=== PATIENT | female | born 1935 | race Caucasian/White ===

== ENCOUNTER 2021-02-23 01:29 | Day surgery (SDC) | payer MEDICARE, SELFPAY ==
[2021-02-12 10:10] VITALS: BMI 23.7
[2021-02-23 09:50] VITALS: BP 178/71; PULSE 65; RESP 16; TEMP 35.9; O2SAT 98; BMI 23.0
--- NOTE | 2021-02-23 10:04 | PM.HPGS ---
History of Present Illness History of Present Illness Consent: Risks, benefits, and alternatives have been discussed and questions answered. Patient agrees to proceed with procedure. Chief complaint: occult GI bleed, Rectal bleeding Narrative: Flavia Clifford is a 85 year old female with Hemoccult-positive stool and anemia. She had endoscopy to investigate anemia about 3 or 4 years ago and does not believe that anything significant was found Review of Systems Review of Systems: All systems reviewed & are unremarkable except as noted in HPI and below PMFSH Social History Social History Living arrangements: with family Spiritual care concerns: No Meds Home Medications and Allergies Home Medications Medication Instructions Recorded Confirmed Type cholecalciferol (vitamin D3) 10 mcg PO DAILY 02/12/21 02/12/21 History [Vitamin D3] cyanocobalamin (vitamin B-12) 1,000 mcg PO DAILY 02/12/21 02/12/21 History levothyroxine 75 mcg PO DAILY 02/12/21 02/12/21 History lutein 6 mg PO DAILY 02/12/21 02/12/21 History spironolactone 25 mg PO DAILY 02/12/21 02/12/21 History Allergies Allergy/AdvReac Type Severity Reaction Status Date / Time Sulfa (Sulfonamide Allergy Nausea and Verified 02/23/21 10:04 Antibiotics) Vomiting [place]-Tyq-Kxi Reductase AdvReac Other Verified 02/23/21 10:04 Inhibitor Exam Resp: Auscultation: clear to auscultation bilaterally Cardio: Rate: regular rate Rhythm: regular rhythm GI: GI Palp: Yes Soft to palpation and No Tenderness to palpation present (GI) Assessment and Plan Assessment and plan (1) Blood in stool: Code(s): K92.1 - Melena Status: Acute Assessment and Plan: Colonoscopy with possible biopsy or polypectomy or cautery or injection of substances.
[2021-02-23] MEDS: LACTATED RINGERS 1,000 ML 150 ML IV CONT (10:22)
--- NOTE | 2021-02-23 10:24 | WPDANESEPPF ---
Anes - Initial Pre Proc Eval Procedure: Operation Date: 02/23/21 10:30 Proposed Procedures p Colonoscopy - Art Madison MD Date/Time: 02/23/21 10:24 Surgeon: Art Madison MD Pre Op Diagnosis: occult GI bleed, Rectal bleeding Patient Data Age: 85 Gender: F Height: 1.55 m Weight: 55.2 kg Last Vital Signs Temp 35.9 C L 02/23/21 09:50 Pulse 65 02/23/21 09:50 Resp 16 02/23/21 09:50 BP 178/71 H 02/23/21 09:50 Pulse Ox 98 02/23/21 09:50 Allergies Allergy/AdvReac Type Severity Reaction Status Date / Time Sulfa (Sulfonamide Allergy Nausea and Verified 02/23/21 10:04 Antibiotics) Vomiting Orzqvxn-Gvf-Ugr Reductase AdvReac Other Verified 02/23/21 10:04 Inhibitor Home Medications Medication Instructions Recorded Confirmed Type cholecalciferol (vitamin D3) 10 mcg PO DAILY 02/12/21 02/23/21 History [Vitamin D3] cyanocobalamin (vitamin B-12) 1,000 mcg PO DAILY 02/12/21 02/23/21 History levothyroxine 75 mcg PO DAILY 02/12/21 02/23/21 History lutein 6 mg PO DAILY 02/12/21 02/23/21 History spironolactone 25 mg PO DAILY 02/12/21 02/23/21 History Patient hx anesthesia problems: none Family hx anesthesia problems: none [facility] Past Medical History Medical History (Updated 02/23/21 @ 10:27 by Octaviano Castro MD) Breast cancer HTN (hypertension) Social History Social History Living arrangements: with family Spiritual care concerns: No Anes - Eval Final PreProcedure Day of Procedure 02/23/21 10:24 Patient weight: normal Heart: regular rate and rhythm Lungs: clear to auscultation Airway: Mallampati scale class II Neurological: alert and oriented Last oral intake: >/= 8 hours ASA classification: III Emergent: no Anesthetic plan: proceed Anesthesia type and monitoring: general GIVS and standard monitoring Informed Consent: The patient's anesthetic plan and its attendant risks and benefits were discussed with the patient/family/POA. Questions were solicited and answers provided to the satisfaction of the patient/family/POA.
[2021-02-23] MEDS: SIMETHICONE ORAL SUSPENSION 20 MG/0.3 ML 30 ML BOTTLE 0.6 ML IRRIGATION (10:55)
[2021-02-23 11:05] VITALS: BP 144/64; PULSE 67; RESP 18; O2SAT 98
[2021-02-23 11:15] VITALS: BP 147/73; PULSE 61; RESP 24; O2SAT 98
[2021-02-23 11:20] VITALS: BP 134/68; PULSE 60; RESP 20; O2SAT 98
== END 2021-02-23 11:30 | disposition home or self-care (01) ==
PROVIDERS: PCP Internal Medicine Geriatric Medicine; Visit Provider Internal Medicine Gastroenterology
PROC: 0DJD8ZZ Inspection of Lower Intestinal Tract, Via Natural or Artificial Opening Endoscopic (ICD-10-PCS; CPT 45378; principal; 2021-02-23 10:30)
DX: D64.9 Anemia, unspecified (principal); D12.3 Benign neoplasm of transverse colon; K92.1 Melena; K64.8 Other hemorrhoids; K57.30 Diverticulosis of large intestine without perforation or abscess without bleeding; E03.9 Hypothyroidism, unspecified; I10 Essential (primary) hypertension
CPT/HCPCS: 45385; 88305; J2704; J7120

== ENCOUNTER 2023-01-22 11:35 | Inpatient (IN) | payer MEDICARE, SELFPAY ==
[2023-01-22] VITALS (65 sets, daily range): BP systolic 91–130; BP diastolic 45–69; PULSE 71–85; RESP 14–23; TEMP 36.6; O2SAT 79–100; BMI 21.6
--- NOTE | ~2023-01-22 | XR_ITS ---
EXAMINATION: XR chest 1V INDICATION: Chest pain and shortness of breath TECHNIQUE: AP view of the chest is obtained. COMPARISON: None available FINDINGS: There is mild atelectasis of the lung bases. No pleural effusion or pneumothorax. The cardi omediastinal silhouette is normal. There appear to be changes of left mastectomy. IMPRESSION: 1. Mild atelectasis of the lung bases. Reviewed, dictated and finalized at location A.
--- NOTE | ~2023-01-22 | CT_ITS ---
EXAMINATION: CT abdomen pelvis wo con DATE: 01/22/2023 14:10 INDICATION: Left abdominal pain, nausea and tenderness TECHNIQUE: Computed tomography (CT) of the abdomen and pelvis was performed without intravenous contr ast. Automated exposure control and iterative reconstruction technique were employed. The dose-length product was 298.72 mGy-cm. COMPARISON: None FINDINGS: Mild basilar and dependent atelectasis in the bilateral lower lungs. Heart size is normal. Atheroscle rotic coronary artery calcific location. No pericardial or pleural effusion. Bilateral renal cysts th e largest on the right measuring up to 4 cm. Liver, gallbladder, spleen, pancreas and bilateral adren al glands are normal. A few splenic calcific lesions consistent with old granulomatous disease. Short segment of nonobstructed distal ileum extends into a small direct right inguinal hernia. No bowel ob struction. There is moderate colonic diverticulosis with a sigmoid predominance. There is no adjacent inflammatory change to suggest diverticulitis. Normal appendix. Bladder is normal. The uterus is not identified and has likely been surgically resected. No free intraperitoneal gas or fluid. No patholo gically enlarged abdominal or pelvic lymphadenopathy. Chronic appearing T11 burst fracture with 40% a nterior vertebral body height loss and 3 mm retropulsion resulting in mild central canal stenosis at this level. Severe lower lumbar spondylosis. IMPRESSION: 1. Short loop of nonobstructed distal ileum extends into a right inguinal hernia. 2. Diverticulosis. Reviewed, dictated and finalized at location A. IMPRESSION: 1. Short loop of nonobstructed distal ileum extends into a right inguinal herni a. 2. Diverticulosis.
--- NOTE | ~2023-01-22 | XR_ITS ---
EXAMINATION: XR hip RT 2V w AP pelvis INDICATION: Right hip pain TECHNIQUE: AP view the pelvis and two views of the right hip are obtained. COMPARISON: None available FINDINGS: Bone alignment is normal. There is no fracture. There is mild osteoarthritis of the hips. T here is severe lumbar spondylosis. IMPRESSION: 1. No acute osseous abnormality. Reviewed, dictated and finalized at location A.
--- NOTE | ~2023-01-22 | CT_ITS ---
EXAMINATION: CT brain wo con INDICATION: Headache COMPARISON: None TECHNIQUE: Standard unenhanced head CT. The dose-length product (DLP) was 605.33 mGy-cm. The mA was a djusted according to patient size. Iterative reconstruction technique was employed. FINDINGS: There is no acute intraparenchymal hemorrhage. No evidence of mass lesion. No evidence of a cute infarction. There is mild periventricular and subcortical hypodensity probably related to small vessel ischemic disease. There is mild prominence of the sulci and ventricles related to cerebral atr ophy. Intracranial calcified cerebral atherosclerosis is noted. There are no extra-axial collections. There is no mass effect or midline shift. Changes in the right globe are likely from ocular lens luz maria evelio. There is a polyp or mucous retention cyst of the left maxillary sinus. IMPRESSION: 1. No acute intracranial abnormality. 2. Age related findings. Reviewed, dictated and finalized at location A.
--- NOTE | ~2023-01-22 | XR_ITS ---
EXAMINATION: XR esophogram water soluble DATE: 01/24/2023 12:59 INDICATION: Dysphagia. TECHNIQUE: The patient drank water-soluble contrast. Fluoroscopy of the hypopharynx and esophagus was performed. Fluoroscopy exposure time was 0.8 minutes. The total number of images was 521. The dose-a marianne product was 0.883 Gy-cm^2. COMPARISON: None. FINDINGS: There is no mass or stricture of the esophagus. There is decreased primary and secondary es ophageal peristalsis. No significant abnormal tertiary waves. There is no hiatal hernia. IMPRESSION: 1. Moderate esophageal dysmotility. Reviewed, dictated and finalized at location A.
--- NOTE | ~2023-01-22 | CT_ITS ---
EXAMINATION: CT cervical spine wo con DATE: 01/22/2023 14:10 INDICATION: Neck pain TECHNIQUE: Computed tomography (CT) of the cervical spine was performed without intravenous contrast. The dose-length product (DLP) was 139.64 mGy-cm. Automated exposure control and iterative reconstruc tion technique were employed. COMPARISON: None FINDINGS: There is moderate loss of intervertebral disc space height at C6-7. The vertebral body heig hts are maintained. The odontoid process is intact. There is multilevel moderate facet and uncoverteb ral joint osteoarthritis. IMPRESSION: 1. Mild to moderate cervical spondylosis without acute findings. Reviewed, dictated and finalized at location A.
--- NOTE | 2023-01-22 12:34 | ECG_ITS ---
Measurements Intervals [place] Rate: 78 P: 157 NC: 145 QRS: -20 QRSD: 90 T: 146 QT: 375 QTc: 429 Interpretive Statements SINUS RHYTHM POSSIBLE LEFT ATRIAL ENLARGEMENT LOW QRS VOLTAGE IN LIMB LEADS INFERIOR INFARCT, AGE INDETERMINATE BORDERLINE ST-T WAVE ABNORMALITY- HIGH LATERAL LEADS BASELINE ARTIFACT- I, II, III, AVR, AVL, AVF, V1 ABNORMAL ECG NO PREVIOUS ECG AVAILABLE FOR COMPARISON Electronically Signed On 01-22-2023 15:52:32 CDT by Livan Schwartz D.O.
--- NOTE | 2023-01-22 12:36 | ED.FALL ---
HPI - Fall General Chief Complaint: Fall Stated Complaint: FALL Time Seen by Provider: 01/22/23 12:02 History of Present Illness HPI Narrative: Patient is an 87-year-old female with a history of hypothyroidism, hypertension presenting after a fall. Patient's children are at bedside and assists with the history. Patient lives with her daughter. They state that the patient has had decreased appetite for the last week. Patient states that she will feel hungry but she is only able to eat a couple of bites. States that she has been nauseated as well. States that she has had decreased urinary output. She also complains of the left lower abdominal pain. Patient states that she got up for some water in the middle of the night and as she tried to stand out of her bed she slipped down to the floor. She did not strike her head or lose consciousness. Patient states that she was unable to get up due to generalized weakness. She was on the floor for about an hour before she was able to get her daughter's attention. Patient complains of some right hip pain. States that she did feel short of breath earlier. She denies numbness or weakness, fevers, chest pain, diarrhea, leg swelling, rashes. Related Data Home Medications Medication Instructions Recorded Confirmed cyanocobalamin (vitamin B-12) 1,000 mcg PO DAILY 02/12/21 01/22/23 1,000 mcg tablet levothyroxine 75 mcg tablet 75 mcg PO DAILY 02/12/21 01/22/23 lutein 6 mg tablet 6 mg PO DAILY 02/12/21 01/22/23 spironolactone 25 mg tablet 25 mg PO DAILY 02/12/21 01/22/23 cholecalciferol (vitamin D3) 25 25 mcg PO DAILY 01/22/23 01/22/23 mcg (1,000 unit) capsule (Vitamin D3) felodipine 2.5 mg tablet,extended 2.5 mg PO DAILY 01/22/23 01/22/23 release 24 hr naproxen sodium 220 mg tablet 220 mg PO Q8H PRN Pain (Scale 01/22/23 01/22/23 (Aleve) Score 1-3) ondansetron HCl 4 mg tablet 4 mg PO Q4-6H PRN Nausea And 01/22/23 01/22/23 Vomiting Allergies Allergy/AdvReac Type Severity Reaction Status Date / Time Srsuhgw-IRA-KwI Reductase AdvReac Other Verified 01/22/23 11:39 Inhibitor [Jwycugt-Thr-Njq Reductase Inhibitor] Sulfa (Sulfonamide AdvReac Nausea and Verified 01/22/23 12:38 Antibiotics) Vomiting Review of Systems Review of Systems: All systems reviewed & are unremarkable except as noted in HPI and below [facility] Past Medical History Medical History (Updated 01/24/23 @ 18:27 by Tammy Saldaña MD) Cancer of left breast Diverticulosis Hypertension Osteoarthritis Right inguinal hernia Surgical History Surgical History (Updated 01/22/23 @ 22:18 by Patsy Anderson PA-C) History of cataract extraction History of left mastectomy History of partial thyroidectomy Family History Family History Son Autoimmune disease Sarcoidosis Father Acute myocardial infarction, Onset Age: 51 Mother , Onset Age: 47 bowel perforation Son Heart valve replaced Son , Onset Age: 52 autoimmune hemolytic anemia Social History Social History (Updated 01/22/23 @ 22:20 by Patsy Anderson PA-C) Social History: Surrogate medical decision maker: Lei Clifford (children). Code status: Full code. Smoking status: Never smoker Alcohol intake: never Substance use: never Lack of Transportation: No Lack of Food: Never True Current Housing: I Have Housing Concerned About Future Housing: No Difficulty Paying Gas/Electric Bills: No Difficulty Paying for Meds: No Currently Unemployed: No Education: High School Diploma/GED Difficulty w/ Childcare or Family Care: No Living arrangements: with family Additional living arrangements comments: Lives with daughter in [place]. Spiritual care concerns: No Exam Narrative: GENERAL: Elderly female lying in bed in no acute distress, pleasant and cooperative HEAD: N
[2023-01-22] MEDS: ACETAMINOPHEN 500 MG TABLET 1000 MG PO (12:53)
[2023-01-22] MEDS: SODIUM CHLORIDE 0.9% IV 1,000 ML 999 ML IV CONT ×2 (12:53→14:05)
[2023-01-22 12:55] LABS: Hematocrit 33.6 % (37.0-47.0); Hemoglobin 11.1 g/dL (12.0-15.0); Mean Corpuscular Hemoglobin 31.4 pg (26-34); Mean Corpuscular Volume 94.9 fl (80-100); Mean Platelet Volume 9.1 fl (7.4-10.4); Platelet Count Result 240 k/mm3 (150-375); Red Blood Count 3.54 M/mm3 (4.2-5.4); Red Cell Distribution Width 14.3 % (11.5-14.5); White Blood Count 41.8 K/mm3 (4.5-10.0)
[2023-01-22 13:05] LABS: INR 1.3; Prothrombin Time 16.5 Seconds (11.1-14.7)
[2023-01-22 13:06] LABS: Partial Thromboplastin Time 33.3 SECONDS (22.3-36.8)
[2023-01-22 13:07] LABS: Alanine Aminotransferase 21 U/L (6-35); Alkaline Phosphatase 102 U/L (38-126); Anion Gap 5 mmol/L (8-16); Aspartate Amino Transferase 45 U/L (14-36); Bilirubin,Total 0.6 mg/dL (0.2-1.3); Blood Urea Nitrogen 34 mg/dL (7-17); Calcium 7.9 mg/dL (8.4-10.2); Carbon Dioxide 26 mmol/L (22-30); Chloride 97 mmol/L (98-107); Creatine Kinase 962 U/L (30-135); Estimated CRCL calculation 13 ml/min; Estimated Glomerular Filt Rate 24; Glucose 97 mg/dL (65-110); Lipase 14 U/L (23-300); Magnesium 1.6 mg/dL (1.6-2.3); Potassium 4.9 mmol/L (3.4-5.0); Sodium 128 mmol/L (137-145)
[2023-01-22 13:15] LABS: NT Pro B Type Natriuretic Pept 8150 pg/mL (19.9-100)
[2023-01-22 13:23] LABS: Band Neutrophils Percent 17 % (0-6); Lymphocytes Absolute Manual 0.41 K/mm3 (1.1-4.5); Metamyelocytes Percent 6 %; Monocytes Absolute Manual 1.67 K/mm3 (0.1-0.90); Monocytes Percent Manual 4 % (3-9); Neutrophils Percent Manual 72 % (46-73); Total Cells Counted 100
[2023-01-22 13:25] LABS: Dohle Bodies Present (NORMAL); Platelet Estimate Adequate (Adequate); Schistocytes None Seen (NORMAL)
[2023-01-22 13:30] LABS: Influenza A QL RT-PCR Negative (Negative); Influenza B QL RT-PCR Negative (Negative); SARS-CoV-2 RNA PCR Negative (Negative)
[2023-01-22] MEDS: PIPERACILLN/TAZ 3.375GM/NS50ML 3.375 GM/50 ML BAG IVPB (14:05)
[2023-01-22 14:33] LABS: Appearance Urine Turbid (Clear); Bacteria Urine 4+ /hpf; Bilirubin Urine Negative (Negative); Blood Urine 3+ (Negative); Color Urine Dark Yellow (Yellow); Glucose Urine UA Negative (Negative); Hyaline Casts Urine Present /lpf; Ketones Urine Trace mg/dL (Negative); Leukocyte Esterase Ur 3+ LEU/UL (Negative); Nitrate Urine Negative (Negative); Non Pathogenic Casts >20; Protein Urine 1+ mg/dL (Negative); Specific Grav Ur 1.014 (1.001-1.035); Squamous Epithelial Cell Urine None seen /hpf (Few); WBC Urine >100 /hpf; pH Urine 5.5 (5.0-9.0)
[2023-01-22 14:34] LABS: Add Urine Microscopic? YES
[2023-01-22] MEDS: VANCOMYCIN 750 MG/NS 250 ML 750 MG/250 ML BAG 250 MG IVPB (14:49)
[2023-01-22 16:32] LABS: Troponin I 0.686 ng/mL (0.000-0.034)
--- NOTE | 2023-01-22 18:47 | PM.IMHP ---
H&P: HPI History of Present Illness Date/Time: 01/22/23 17:00 Chief Complaint: Fall. Narrative: This is a very pleasant 87-year-old female with remote history of breast cancer, hypertension, hypothyroidism, and GERD who presented to the emergency department via EMS from home for evaluation after a fall. The patient provides the following history; her children provides additional information with the patient's permission. She lives at home with her daughter and everyone has been healthy at home however the patient has not been feeling well for the past couple of weeks. She has difficulties elaborating on that but she does endorse a decreased appetite (this does not sound like it is a new issue and in fact she has lost over 100 lb in the last year unintentionally) and what sounds like dysphagia ?sometimes it feels like my food just sits there in my chest.? At times she has diffuse upper abdominal discomfort which she describes as a squeezing sensation along the bra line associated with nausea but no vomiting. The symptoms seem to occur while eating but not every time she eats. She has also had some chills. Early this morning she got up to use the restroom and when trying to get out of bed she felt weak and slid down to the ground. She was too weak to get herself up and she yelled for her daughter who did not hear her for upwards of an hour. Daughter called 911 and the patient declined transport to the hospital at that time. As the morning progressed however she was not feeling any better and she had what sounds like a near syncopal episode with her vision darkening associated with profound weakness and she decided to come in. She denies head trauma, loss of consciousness, headache, vertigo, fever, sinus congestion, sore throat, chest pain, pleuritic pain, cough, shortness of breath, vomiting, diarrhea, dysuria, melena, and hematochezia. In the ED: On arrival to the emergency department her blood pressure was 91/45, pulse 80, respiratory 14, pulse ox 99% room air, temperature 97.8?. She was given IV crystalloids with improvement in her blood pressures. Labs were significant for a WBC count of 41.8 with 17% bands noted on manual differential, sodium 128, potassium 4.9, chloride 97, BUN 34, creatinine 2.00, lactic acid 2.0, total CK 962, troponin 1.120, proBNP 8150. UA showed 3+ blood, 1+ protein, 3+ leukocyte esterase, 3 to 5 RBC, greater than 100 WBC, 4+ bacteria, and casts. She tested negative for influenza and COVID. No acute findings were noted on imaging studies. She was given a dose of vancomycin and Zosyn and she is being admitted in this setting. At the time my evaluation she does not have any specific complaints aside from those listed as above. She has no known history of cardiac disease or peptic ulcers. Review of Systems Review of Systems: Twelve systems were reviewed and are negative except for as per HPI. [facility] Past Medical History Medical History (Updated 01/22/23 @ 22:30 by Patsy Anderson PA-C) Cancer of left breast Diverticulosis Hypertension Osteoarthritis Right inguinal hernia Surgical History Surgical History (Updated 01/22/23 @ 22:18 by Patsy Anderson PA-C) History of cataract extraction History of left mastectomy History of partial thyroidectomy Family History Family History Son Autoimmune disease Sarcoidosis Father Acute myocardial infarction, Onset Age: 51 Mother , Onset Age: 47 bowel perforation Son Heart valve replaced Son , Onset Age: 52 autoimmune hemolytic anemia Social History Social History (Updated 01/22/23 @ 22:20 by Patsy Anderson PA-C) Social History: Surrogate medical decision maker: Lei Clifford (children). Code status: Full code. Smoking status: Never smoker Alcohol intake: never Substance use: never Lack of Transportation: No Lack of Food: Never T
--- NOTE | 2023-01-22 19:38 | PC.NURSE ---
report given to Sadie
--- NOTE | 2023-01-22 19:53 | ADMGEN ---
This patient, Flavia Clifford, was admitted to IMU Room 232-01. Patient/family oriented to hospital policies and general routines including ID bracelet, bed and alarms, visiting hours, pain management, procedures, bathroom and other care routines, personal items, smoking policy, room service/diet, and visiting hours. Information on how to activate the Rapid Response Team has been discussed. Patient/Family are encouraged to report perceived risks to care and to ask questions if they do not understand what they are told or what they should do.
[2023-01-22 21:57] LABS: Troponin I 0.496 ng/mL (0.000-0.034)
[2023-01-22 22:30] LABS: Anion Gap 8 mmol/L (8-16); Blood Urea Nitrogen 36 mg/dL (7-17); Calcium 7.4 mg/dL (8.4-10.2); Carbon Dioxide 20 mmol/L (22-30); Chloride 103 mmol/L (98-107); Creatine Kinase 913 U/L (30-135); Estimated CRCL calculation 13 ml/min; Estimated Glomerular Filt Rate 24; Glucose 80 mg/dL (65-110); Potassium 4.5 mmol/L (3.4-5.0); Sodium 131 mmol/L (137-145)
[2023-01-22] MEDS: SODIUM CHLORIDE 0.9% IV 1,000 ML 80 ML IV CONT (23:02)
[2023-01-23] VITALS (14 sets, daily range): BP systolic 103–185; BP diastolic 44–93; PULSE 63–95; RESP 16–24; TEMP 36.4–36.8; O2SAT 95–100
[2023-01-23 04:36] LABS: Hematocrit 31.3 % (37.0-47.0); Mean Corpuscular HGB Conc 31.9 g/dl (32-36); Mean Corpuscular Hemoglobin 30.8 pg (26-34); Mean Corpuscular Volume 96.3 fl (80-100); Mean Platelet Volume 9.3 fl (7.4-10.4); Platelet Count Result 193 k/mm3 (150-375); Red Blood Count 3.25 M/mm3 (4.2-5.4); Red Cell Distribution Width 14.5 % (11.5-14.5); White Blood Count 25.5 K/mm3 (4.5-10.0)
[2023-01-23 04:52] LABS: Alanine Aminotransferase 19 U/L (6-35); Albumin Level 2.2 g/dL (3.5-5.1); Alkaline Phosphatase 79 U/L (38-126); Anion Gap 6 mmol/L (8-16); Aspartate Amino Transferase 41 U/L (14-36); Bilirubin,Total 0.4 mg/dL (0.2-1.3); Blood Urea Nitrogen 34 mg/dL (7-17); Calcium 6.7 mg/dL (8.4-10.2); Carbon Dioxide 19 mmol/L (22-30); Chloride 108 mmol/L (98-107); Creatine Kinase 535 U/L (30-135); Estimated CRCL calculation 15 ml/min; Estimated Glomerular Filt Rate 27; Glucose 54 mg/dL (65-110); Magnesium 1.4 mg/dL (1.6-2.3); Potassium 4.1 mmol/L (3.4-5.0); Sodium 133 mmol/L (137-145)
[2023-01-23 04:59] LABS: Band Neutrophils Percent 17 % (0-6); Giant Platelets Present; Lymphocytes Absolute Manual 0.76 K/mm3 (1.1-4.5); Monocytes Absolute Manual 0.76 K/mm3 (0.1-0.90); Monocytes Percent Manual 3 % (3-9); Neutrophils Absolute Manual 23.97 K/mm3 (1.7-7.2); Neutrophils Percent Manual 77 % (46-73); Platelet Estimate Adequate (Adequate); Schistocytes None Seen (NORMAL); Total Cells Counted 100
[2023-01-23 05:04] LABS: Glucose Point of Care 67 mg/dl (65-105)
[2023-01-23 05:26] LABS: Glucose Point of Care 73 mg/dl (65-105)
[2023-01-23 06:09] LABS: Glucose Point of Care 66 mg/dl (65-105)
[2023-01-23 06:10] LABS: Free T4 Free Thyroxine Reflex 1.31 ng/dL (0.78-2.19)
[2023-01-23] MEDS: LEVOTHYROXINE SODIUM 75 MCG TABLET PO (06:20)
[2023-01-23] MEDS: GLUCOSE ORAL GEL 15 GM OF GLUCSE IN 37.5 GM TUBE PO (06:45)
[2023-01-23 07:00] LABS: Total Triiodothyronine (T3) 0.37 NG/ML (0.97-1.69)
[2023-01-23 07:22] LABS: Glucose Point of Care 66 mg/dl (65-105)
[2023-01-23 07:31] LABS: Glucose Point of Care 85 mg/dl (65-105)
[2023-01-23] MEDS: CYANOCOBALAMIN 1,000 MCG TABLET 1000 MCG PO (10:06)
[2023-01-23] MEDS: CHOLECALCIFEROL 1,000 UNITS TABLET 1000 UNITS PO (10:06)
[2023-01-23] MEDS: ENOXAPARIN 30 MG/0.3 ML SYRINGE SUB-Q ×2 (10:06→10:21)
[2023-01-23] MEDS: SODIUM CHLORIDE 0.9% IV 1,000 ML 80 ML IV CONT (12:48)
[2023-01-23 13:03] LABS: Glucose Point of Care 83 mg/dl (65-105)
--- NOTE | 2023-01-23 16:12 | WPDPN ---
Progress Note: A&P Assessment and Plan (1) Sepsis: Code(s): A41.9 - Sepsis, unspecified organism Status: Acute (2) Fall from bed: Code(s): W06.XXXA - Fall from bed, initial encounter Status: Acute (3) Acute kidney injury: Code(s): N17.9 - Acute kidney failure, unspecified Status: Acute (4) Urinary tract infection: Code(s): N39.0 - Urinary tract infection, site not specified Status: Acute (5) Dehydration: Code(s): E86.0 - Dehydration Status: Acute (6) Hyponatremia: Code(s): E87.1 - Hypo-osmolality and hyponatremia Status: Acute (7) Elevated troponin: Code(s): R77.8 - Other specified abnormalities of plasma proteins Status: Acute (8) Abnormal weight loss: Code(s): R63.4 - Abnormal weight loss Status: Acute (9) Hypertension: Code(s): I10 - Essential (primary) hypertension Status: Acute Plan The patient presented to the emergency department from home for evaluation after she slipped out of bed this morning, she had apparently been lying on the floor for about an hour before her daughter found her. She had not been feeling well for a couple of weeks as detailed in HPI. Labs, imaging, EKG, and all reports were personally reviewed. Sepsis criteria met on arrival with marked leukocytosis with bandemia and acute kidney injury in the setting of urinary tract infection. She received a dose of vancomycin and Zosyn in the emergency department and she has been started on ceftriaxone, pending urine and blood cultures. Acute kidney injury is likely due to a combination of dehydration from poor oral intake, hypoperfusion from relative hypotension, and possible ATN from sepsis in the setting of diuretic use. She does take Aleve a couple of times a week but certainly not daily. She will be judiciously hydrated with close monitoring of volume status and renal function. Her total CK is also a bit elevated, may be developing mild rhabdomyolysis, and will be trended. Avoid nephrotoxic agents. If no improvement with IV fluids alone, a further workup can be pursued. Sodium will be monitored to ensure it is correcting appropriately with IV fluids. Luckily she did not hurt herself in the fall from bed. Initiate fall precautions. PT/OT will need to be consulted once she is feeling better. Incidentally her troponin level was modestly elevated though it has been essentially flat. EKG shows sinus rhythm, low QRS voltage in the limb leads, age-indeterminate inferior infarct, and borderline ST T-wave abnormalities in the high lateral leads. She is not and has not been experiencing chest pain and she has no known history of cardiac disease. Possible type 2 MS related to sepsis and hypotension. ProBNP is also quite elevated however both of these could be in the setting of her acute kidney injury. Troponin will be trended to peak. Echocardiogram has been ordered for a.m.. Regarding her abnormal weight loss, this will need to be worked up by her primary care provider however it does sound as though she is having issues with dysphagia and she may benefit from an upper endoscopy. Her home medications will be reviewed and resumed as appropriate. 01/23/2023 interval history: Patient with a fall and weakness most likely secondary to sepsis, 1 bottle of blood culture is growing Gram-negative bacilli, will continue ceftriaxone will follow-up and sensitivity and identification, patient is sitting in the states feeling little better, worked with PT OT, patient's family present in the and gave updates. Subjective Date/time seen: 01/23/23 16:12 Interval history: Fall. Narrative: This is a very pleasant 87-year-old female with remote history of breast cancer, hypertension, hypothyroidism, and GERD who presented to the emergency department via EMS from home for evaluation after a fall. The patient provides the following history; her children provides additional information with
[2023-01-23 17:23] LABS: Glucose Point of Care 75 mg/dl (65-105)
--- NOTE | 2023-01-23 18:32 | PC.NURSE ---
This patient, Flavia Clifford, was transferred to [facility] on 01/23/23 at 1832. Personal belongings sent with patient. Report given to DULCE Gannon. Appropriate documentation sent with patient.
[2023-01-23 21:09] LABS: Glucose Point of Care 66 mg/dl (65-105)
[2023-01-23 22:17] LABS: Glucose Point of Care 96 mg/dl (65-105)
[2023-01-24] VITALS (10 sets, daily range): BP systolic 142–204; BP diastolic 53–73; PULSE 55–81; RESP 18; TEMP 36.3–37; O2SAT 91–100; BMI 23.4
[2023-01-24] MEDS: SODIUM CHLORIDE 0.9% IV 1,000 ML 80 ML IV CONT ×2 (00:48→17:29)
[2023-01-24 05:38] LABS: Basophils Absolute Auto 0.1 K/mm3 (0.0-0.1); Basophils Percent Auto 0.4 % (0.2-1.2); Eosinophils Absolute Auto 0.4 K/mm3 (0-0.3); Eosinophils Percent Auto 2.1 % (0-4.4); Hematocrit 32.3 % (37.0-47.0); Hemoglobin 10.7 g/dL (12.0-15.0); Immature Granulocyte Absolute 0.38 K/mm3 (0.00-0.031); Immature Granulocyte Percent A 2.1 % (0-0.5); Lymphocytes Absolute Auto 1.16 K/mm3 (0.9-3.2); Lymphocytes Percent Auto 6.3 % (18.3-44.2); Mean Corpuscular HGB Conc 33.1 g/dl (32-36); Mean Corpuscular Hemoglobin 31.3 pg (26-34); Mean Corpuscular Volume 94.4 fl (80-100); Mean Platelet Volume 9.9 fl (7.4-10.4); Monocytes Absolute Auto 0.7 K/mm3 (0.1-0.6); Monocytes Percent Auto 3.6 % (2.6-8.5); Neutrophils Absolute Auto 15.9 K/mm3 (1.3-6.7); Neutrophils Percent Auto 85.5 % (45.5-73.1); Platelet Count Result 224 k/mm3 (150-375); Red Blood Count 3.42 M/mm3 (4.2-5.4); Red Cell Distribution Width 14.5 % (11.5-14.5); White Blood Count 18.5 K/mm3 (4.5-10.0)
[2023-01-24] MEDS: LEVOTHYROXINE SODIUM 75 MCG TABLET PO (05:47)
[2023-01-24 05:53] LABS: Anion Gap 3 mmol/L (8-16); Blood Urea Nitrogen 31 mg/dL (7-17); Calcium 7.8 mg/dL (8.4-10.2); Carbon Dioxide 21 mmol/L (22-30); Chloride 108 mmol/L (98-107); Estimated CRCL calculation 18 ml/min; Estimated Glomerular Filt Rate 33; Glucose 65 mg/dL (65-110); Magnesium 1.8 mg/dL (1.6-2.3); Potassium 4.2 mmol/L (3.4-5.0); Sodium 132 mmol/L (137-145)
[2023-01-24 08:47] LABS: Glucose Point of Care 80 mg/dl (65-105)
[2023-01-24 08:47] LABS: Glucose Point of Care 62 mg/dl (65-105)
[2023-01-24] MEDS: CHOLECALCIFEROL 1,000 UNITS TABLET 1000 UNITS PO (09:18)
[2023-01-24] MEDS: CYANOCOBALAMIN 1,000 MCG TABLET 1000 MCG PO (09:18)
--- NOTE | 2023-01-24 11:34 | PCCCNOTE ---
On 01/24/23, the student, [Antonella Gregg ], provided care and completed [facility] documentation on this patient. I have reviewed the student's documentation and agree with the findings.
--- NOTE | 2023-01-24 11:37 | PM.IMPN ---
Progress Note: A&P Assessment and Plan (1) Sepsis: Code(s): A41.9 - Sepsis, unspecified organism Status: Acute (2) Fall from bed: Code(s): W06.XXXA - Fall from bed, initial encounter Status: Acute (3) Acute kidney injury: Code(s): N17.9 - Acute kidney failure, unspecified Status: Acute (4) Urinary tract infection: Code(s): N39.0 - Urinary tract infection, site not specified Status: Acute (5) Dehydration: Code(s): E86.0 - Dehydration Status: Acute (6) Hyponatremia: Code(s): E87.1 - Hypo-osmolality and hyponatremia Status: Acute (7) Elevated troponin: Code(s): R77.8 - Other specified abnormalities of plasma proteins Status: Acute (8) Abnormal weight loss: Code(s): R63.4 - Abnormal weight loss Status: Acute (9) Hypertension: Code(s): I10 - Essential (primary) hypertension Status: Acute Plan The patient presented to the emergency department from home for evaluation after she slipped out of bed this morning, she had apparently been lying on the floor for about an hour before her daughter found her. She had not been feeling well for a couple of weeks as detailed in HPI. Labs, imaging, EKG, and all reports were personally reviewed. Sepsis criteria met on arrival with marked leukocytosis with bandemia and acute kidney injury in the setting of urinary tract infection. She received a dose of vancomycin and Zosyn in the emergency department and she has been started on ceftriaxone, pending urine and blood cultures. Acute kidney injury is likely due to a combination of dehydration from poor oral intake, hypoperfusion from relative hypotension, and possible ATN from sepsis in the setting of diuretic use. She does take Aleve a couple of times a week but certainly not daily. She will be judiciously hydrated with close monitoring of volume status and renal function. Her total CK is also a bit elevated, may be developing mild rhabdomyolysis, and will be trended. Avoid nephrotoxic agents. If no improvement with IV fluids alone, a further workup can be pursued. Sodium will be monitored to ensure it is correcting appropriately with IV fluids. Luckily she did not hurt herself in the fall from bed. Initiate fall precautions. PT/OT will need to be consulted once she is feeling better. Incidentally her troponin level was modestly elevated though it has been essentially flat. EKG shows sinus rhythm, low QRS voltage in the limb leads, age-indeterminate inferior infarct, and borderline ST T-wave abnormalities in the high lateral leads. She is not and has not been experiencing chest pain and she has no known history of cardiac disease. Possible type 2 PR related to sepsis and hypotension. ProBNP is also quite elevated however both of these could be in the setting of her acute kidney injury. Troponin will be trended to peak. Echocardiogram has been ordered for a.m.. Regarding her abnormal weight loss, this will need to be worked up by her primary care provider however it does sound as though she is having issues with dysphagia and she may benefit from an upper endoscopy. Her home medications will be reviewed and resumed as appropriate. 01/23/2023 interval history: Patient with a fall and weakness most likely secondary to sepsis, 1 bottle of blood culture is growing Gram-negative bacilli, will continue ceftriaxone will follow-up and sensitivity and identification, patient is sitting in the states feeling little better, worked with PT OT, patient's family present in the and gave updates. Subjective Date/time seen: 01/24/23 11:37 Interval history: No new complaints Exam Narrative: Elderly frail Patient is comfortable, NAD HEENT: eyes are clear and none icteric LUNGS: Normal respiratory effort ABD: Not distended Lower extremities: no edema SKIN: nonjaundiced Neuro: grossly intact. Objective Data Vital Signs Vital Signs: Vital Signs - 24
[2023-01-24 12:34] LABS: Glucose Point of Care 66 mg/dl (65-105)
[2023-01-24] MEDS: SPIRONOLACTONE 25 MG TABLET PO (13:43)
[2023-01-24] MEDS: cefTRIAXone 2 GM/NS 100 ML 2 GM/100 ML BAG IVPB (15:56)
[2023-01-24 17:39] LABS: Glucose Point of Care 59 mg/dl (65-105)
[2023-01-24 17:39] LABS: Glucose Point of Care 61 mg/dl (65-105)
--- NOTE | 2023-01-24 22:35 | ECHO_ITS ---
Patient Info Name: Flavia Clifford Age: 87 years : 1935 Gender: Female Ht: 61 in Wt: 114 lbs BSA: 1.50 m2 HR: 72 bpm BP: 145 / 55 mmHg Heart Rhythm: Sinus Rhythm Technical Quality: Fair Exam Date: 01/24/2023 9:59 AM Exam Location: [facility] Room: 244 Patient Status: Inpatient Admit Date: 01/22/2023 Staff Ordering Physician: Patsy Anderson PA-C [employer] Professor: Kelsi Woo RDCS Attending Provider: Gary Interiano MD Referring Physician: Monica ANDRES; Exam Type: CA echo doppler color flow Study Info Indications - ELEVATED TROPONINS Complete two-dimensional, color flow and Doppler transthoracic echocardiogram is performed. Summary 1. Complete two-dimensional, color flow and Doppler transthoracic echocardiogram is performed. 2. Left ventricular chamber dimension is normal. 3. Left ventricular systolic function is normal, estimated at 65-70%. 4. There is no increased left ventricular wall thickness. 5. The left ventricular diastolic function is grade I diastolic dysfunction. 6. There is mild to moderate mitral valve regurgitation. 7. There is moderate tricuspid valve regurgitation. 8. Mild pulmonary hypertension, estimated pulmonary arterial systolic pressure is 40 mmHg. Left Ventricle Left ventricular chamber dimension is normal. Left ventricular systolic function is normal, estimated at 65-70%. There is no increased left ventricular wall thickness. The left ventricular diastolic function is grade I diastolic dysfunction. Right Ventricle Right ventricular chamber dimension is normal. Right ventricular systolic function is normal. Left Atria Left atrial chamber dimension is mildly enlarged. Right Atria Right atrial chamber dimension is normal. Aortic Valve The aortic valve is trileaflet. There is mild aortic valve sclerosis. There is no aortic valve stenosis. There is mild aortic valve regurgitation. Pulmonic Valve The pulmonic valve is normal. There is mild pulmonic regurgitation. Mitral Valve The mitral valve has thickened leaflets. There is mild to moderate mitral valve regurgitation. The mitral valve annulus is mildly calcified. Tricuspid Valve The tricuspid valve leaflets are normal. There is moderate tricuspid valve regurgitation. Mild pulmonary hypertension, estimated pulmonary arterial systolic pressure is 40 mmHg. Pericardium/Pleural The pericardium appears normal. There is trivial pericardial effusion. Inferior Vena Cava Normal inferior vena cava with >50% collapse upon inspiration consistent with normal right atrial pressure, 5 mmHg. Aorta The aortic root size at the sinus of Valsalva is normal. There is mild aortic atherosclerosis. Left Ventricular Outflow Tract Name Value Normal LVOT 2D LVOT Diameter 2.0 cm LVOT Doppler LVOT Peak Gradient 4 mmHg LVOT Mean Gradient 3 mmHg LVOT VTI 26 cm LVOT VTI/AV VTI Ratio 0.7 LVOT Stroke Volume 81 ml LVOT CO 14.5 l/min LVOT CI 9.7 l/min/m2 Pulmonic Valve -------
[2023-01-25] VITALS: PULSE 67
[2023-01-25 04:00] VITALS: BP 183/71; PULSE 60; PULSE 69; RESP 18; TEMP 36.4; O2SAT 97
[2023-01-25] MEDS: LEVOTHYROXINE SODIUM 75 MCG TABLET PO (05:39)
[2023-01-25] MEDS: SODIUM CHLORIDE 0.9% IV 1,000 ML 80 ML IV CONT (05:39)
[2023-01-25 05:48] LABS: Basophils Absolute Auto 0.1 K/mm3 (0.0-0.1); Basophils Percent Auto 0.5 % (0.2-1.2); Eosinophils Absolute Auto 0.4 K/mm3 (0-0.3); Eosinophils Percent Auto 3.8 % (0-4.4); Hematocrit 34.5 % (37.0-47.0); Hemoglobin 10.9 g/dL (12.0-15.0); Immature Granulocyte Absolute 0.07 K/mm3 (0.00-0.031); Immature Granulocyte Percent A 0.7 % (0-0.5); Lymphocytes Absolute Auto 1.32 K/mm3 (0.9-3.2); Lymphocytes Percent Auto 12.3 % (18.3-44.2); Mean Corpuscular HGB Conc 31.6 g/dl (32-36); Mean Corpuscular Hemoglobin 30.1 pg (26-34); Mean Corpuscular Volume 95.3 fl (80-100); Mean Platelet Volume 9.8 fl (7.4-10.4); Monocytes Absolute Auto 0.7 K/mm3 (0.1-0.6); Monocytes Percent Auto 6.2 % (2.6-8.5); Neutrophils Absolute Auto 8.2 K/mm3 (1.3-6.7); Neutrophils Percent Auto 76.5 % (45.5-73.1); Platelet Count Result 238 k/mm3 (150-375); Red Blood Count 3.62 M/mm3 (4.2-5.4); Red Cell Distribution Width 14.5 % (11.5-14.5); White Blood Count 10.7 K/mm3 (4.5-10.0)
[2023-01-25 05:57] LABS: Anion Gap 3 mmol/L (8-16); Blood Urea Nitrogen 21 mg/dL (7-17); Calcium 8.1 mg/dL (8.4-10.2); Carbon Dioxide 23 mmol/L (22-30); Chloride 107 mmol/L (98-107); Estimated CRCL calculation 22 ml/min; Estimated Glomerular Filt Rate 42; Glucose 69 mg/dL (65-110); Magnesium 1.6 mg/dL (1.6-2.3); Potassium 4.4 mmol/L (3.4-5.0); Sodium 133 mmol/L (137-145)
[2023-01-25 08:16] VITALS: BP 155/60; PULSE 57; RESP 16; TEMP 36.3; O2SAT 98
[2023-01-25 08:27] LABS: Glucose Point of Care 101 mg/dl (65-105)
[2023-01-25] MEDS: CYANOCOBALAMIN 1,000 MCG TABLET 1000 MCG PO (08:36)
[2023-01-25] MEDS: SPIRONOLACTONE 25 MG TABLET PO (08:36)
[2023-01-25] MEDS: ENOXAPARIN 30 MG/0.3 ML SYRINGE SUB-Q (08:36)
[2023-01-25] MEDS: CHOLECALCIFEROL 1,000 UNITS TABLET 1000 UNITS PO (08:36)
[2023-01-25 11:43] LABS: Glucose Point of Care 86 mg/dl (65-105)
--- NOTE | 2023-01-25 11:59 | PM.DS ---
DS: Admitting Diagnosis Discharge Date January 25, 2023 Admitting Diagnosis UTI, bacteremia DS: Discharge Diagnosis Discharge Diagnosis (1) Sepsis: Code(s): A41.9 - Sepsis, unspecified organism Status: Acute (2) Fall from bed: Code(s): W06.XXXA - Fall from bed, initial encounter Status: Acute (3) Acute kidney injury: Code(s): N17.9 - Acute kidney failure, unspecified Status: Acute (4) Urinary tract infection: Code(s): N39.0 - Urinary tract infection, site not specified Status: Acute (5) Dehydration: Code(s): E86.0 - Dehydration Status: Acute (6) Hyponatremia: Code(s): E87.1 - Hypo-osmolality and hyponatremia Status: Acute (7) Elevated troponin: Code(s): R77.8 - Other specified abnormalities of plasma proteins Status: Acute (8) Abnormal weight loss: Code(s): R63.4 - Abnormal weight loss Status: Acute (9) Hypertension: Code(s): I10 - Essential (primary) hypertension Status: Acute DS: Summary Hospital Course Hospital Course: Patient is an 87-year-old female who was admitted for a fall. She was found have a urinary tract infection admission. Started on IV Rocephin patient did well. Blood cultures did show positive with E coli. His E coli was pansensitive she will be sent home on Augmentin for a total of 10 days of therapy. Time Spent with Patient Time attestation: Total time spent providing and/or coordinating discharge services: Exam Narrative: Elderly frail Patient is comfortable, NAD HEENT: eyes are clear and none icteric LUNGS: Normal respiratory effort ABD: Not distended Lower extremities: no edema SKIN: nonjaundiced Neuro: grossly intact. DS: Data Data Completed and Pending Labs on day of discharge: Labs from last 24 hours 01/25/23 01/25/23 01/25/23 11:39 08:26 05:26 WBC 10.7 H RBC 3.62 L Hgb 10.9 L Hct 34.5 L MCV 95.3 MCH 30.1 MCHC 31.6 L RDW 14.5 Plt Count 238 MPV 9.8 Immature Gran % (Auto) 0.7 H Neut % (Auto) 76.5 H Lymph % (Auto) 12.3 L [place] % (Auto) 6.2 Eos % (Auto) 3.8 Baso % (Auto) 0.5 Lymph # (Auto) 1.32 [place] # (Auto) 0.7 H Eos # (Auto) 0.4 H Baso # (Auto) 0.1 Abs Immat Gran (auto) 0.07 H Absolute Neuts (auto) 8.2 H Absolute Nucleated RBC 0.0 Nucleated RBC % 0.0 Sodium 133 L Potassium 4.4 Chloride 107 Carbon Dioxide 23 Anion Gap 3 L BUN 21 H D Creatinine 1.20 H Estim Creat Clear Calc 22 Estimated GFR 42 L Glucose 69 POC Capillary Glucose 86 101 Calcium 8.1 L Magnesium 1.6 01/24/23 01/24/23 01/24/23 17:36 17:34 11:37 WBC RBC Hgb Hct MCV MCH MCHC RDW Plt Count MPV Immature Gran % (Auto) Neut % (Auto) Lymph % (Auto) [place] % (Auto) Eos % (Auto) Baso % (Auto) Lymph # (Auto) [place] # (Auto) Eos # (Auto) Baso # (Auto) Abs Immat Gran (auto) Absolute Neuts (auto) Absolute Nucleated RBC Nucleated RBC % Sodium Potassium Chloride Carbon Dioxide Anion Gap BUN Creatinine Estim Creat Clear Calc Estimated GFR Glucose POC Capillary Glucose 61 L 59 L* 66 Calcium Magnesium Preliminary micro results at discharge 01/22/23 12:45 Blood Culture - Preliminary Blood Escherichia Coli 01/22/23 14:11 Urine Culture - Preliminary Urine Clean Catch Escherichia Coli Discharge Plan Discharge Attending physician on discharge: Lázaro Milian Discharging Clinician: Lázaro Milian Patient Disposition: Home, Self-Care Activity: as tolerated Diet: as tolerated Patient Instructions: Antibiotic Form, Urinary Tract Infection in Women (DC), Pain Management (DC), Sepsis (DC) Stand Alone Forms: General Discharge Information Follow-up/Referrals: Manjula,MD Daisha [Primary Care Prov
[2023-01-25] MEDS: cefTRIAXone 2 GM/NS 100 ML 2 GM/100 ML BAG IVPB (12:10)
== END 2023-01-25 13:59 | disposition home or self-care (01) | DRG 690 ==
LOC: ANHED 12:02 → ANHIMU 19:39 → ANH2MED 01-23 18:43
PROVIDERS: Family Medicine; Physician Assistant; Admitting Provider Internal Medicine; Emergency Provider Emergency Medicine; PCP Internal Medicine Geriatric Medicine; Visit Provider Chiropractor
DX: N39.0 Urinary tract infection, site not specified (principal); N17.9 Acute kidney failure, unspecified; E87.1 Hypo-osmolality and hyponatremia; E86.0 Dehydration; I10 Essential (primary) hypertension; E03.9 Hypothyroidism, unspecified; R63.4 Abnormal weight loss; R77.8 Other specified abnormalities of plasma proteins; K57.30 Diverticulosis of large intestine without perforation or abscess without bleeding; M19.90 Unspecified osteoarthritis, unspecified site; W19.XXXA Unspecified fall, initial encounter; Z20.822 Contact with and (suspected) exposure to COVID-19; Z85.3 Personal history of malignant neoplasm of breast
CPT/HCPCS: 36415; 70450; 71045; 72125; 73502; 74176; 74220; 80048; 80053; 81001; 82550; 82948; 83605; 83690; 83735; 83880; 84439; 84443; 84480; 84484; 85025; 85610; 85730; 87040; 87077; 87081; 87086; 87088; 87186; 87636; 93005; 93306; 96361; 96365; 97161; 97165; 97530; 97535; 99285; A9270; J0696; J1650; J2543; J3370; J7030

== ENCOUNTER 2023-01-27 08:08 | Emergency (ER) | payer MEDICARE, SELFPAY ==
--- NOTE | ~2023-01-27 | CT_ITS ---
Noncontrast CT scan of the cervical spine Technique: Multiple contiguous axial [address] images of the cervical spine were obtained and rec onstructed in 2D sagittal and coronal planes on the acquisition scanner. Dose reduction technique was used on this scan by utilizing automated exposure control, adjustment of the mA and/or kV according to patient size. The dose-length product (DLP) was 95.52 mGy-cm. Clinical History: Pain COMPARISON: 01/22/2023 Findings: No fractures or dislocations. There is advanced degenerative disc narrowing at C6-C7. Stab le scattered facet joint degenerative changes are present, worst at C4-C5. There is probable left randa ral foraminal narrowing at C6-C7. No prevertebral soft tissue swelling. Impression: No fracture or subluxation of the cervical spine. Mild degenerative change, as above. Reviewed, dictated and finalized at [facility]. Impression: No fracture or subluxation of the cervical spine. Mild degenerative change, as above.
--- NOTE | ~2023-01-27 | CT_ITS ---
CT head without contrast Indication: Head injury COMPARISON: 01/22/2023 Technique: Serial scans were obtained through the brain without the administration of contrast. Dose reduction technique was used on this scan by utilizing automated exposure control and iterative recon struction technique. The dose-length product (DLP) was 681.00 mGy-cm. Findings: There is no evidence of intracranial hemorrhage, mass lesion, or acute infarct. The ventri cles and subarachnoid spaces are dilated, consistent with mild atrophy. Low attenuation regions are seen within the periventricular white matter bilaterally, likely representing changes from chronic mi crovascular ischemic disease. There is no evidence of edema, mass effect or midline shift. The visu alized paranasal sinuses and mastoid air cells are clear. Impression: No intracranial hemorrhage, mass, or acute infarct. Atrophy and chronic white matter changes, as above. Reviewed, dictated and finalized at [facility]. Impression: No intracranial hemorrhage, mass, or acute infarct. Atrophy and chronic white matter changes, as above.
--- NOTE | ~2023-01-27 | XR_ITS ---
Portable chest x-ray Comparison: 01/22/2023 Clinical History: Weakness Findings: There is minimal left basilar haziness, nonspecific. Right lung clear. Cardiomediastinal silhouette is stable. Bones and soft tissues are unremarkable. Impression: Mild left basilar haziness. Consider left lower lobe pneumonia. Reviewed, dictated and finalized at [facility]. Impression: Mild left basilar haziness. Consider left lower lobe pneumonia.
--- NOTE | ~2023-01-27 | XR_ITS ---
AP view of the pelvis and AP and lateral views of the right hip Clinical history: Pain Findings: No acute fracture or dislocation is seen. Osseous alignment is anatomic. Bilateral hip and SI joint spaces are preserved. Soft tissues are unremarkable. Impression: No significant abnormality is seen. Reviewed, dictated and finalized at location . Impression: No significant abnormality is seen.
[2023-01-27 08:06] VITALS: BP 128/62; PULSE 92; RESP 24; TEMP 37.4; O2SAT 94
[2023-01-27 08:21] VITALS: PULSE 88
--- NOTE | 2023-01-27 08:24 | ED.GENADULT ---
HPI - General Adult General Chief complaint: Weakness Stated complaint: mult c/o History of Present Illness HPI narrative: 87-year-old female presented to the emergency department for evaluation of increased generalized weakness and chills last night. Patient was started on antibiotics for a urinary tract infection Tuesday. Patient states that she has had worsening nausea. Patient denies any chest pain shortness of breath abdominal pain or pain with urination. Patient was afebrile upon arrival to the ED. Patient reports that she has had persistent decrease in her appetite over the last 6 weeks and has had follow-up with her primary care physician for this. Patient also reports that she did have a ground-level fall she is unsure if she struck her head but she was rolling on the floor had neck pain and right hip pain. Related Data Home Medications Medication Instructions Recorded Confirmed cyanocobalamin (vitamin B-12) 1,000 mcg PO DAILY 02/12/21 01/22/23 1,000 mcg tablet levothyroxine 75 mcg tablet 75 mcg PO DAILY 02/12/21 01/22/23 lutein 6 mg tablet 6 mg PO DAILY 02/12/21 01/22/23 spironolactone 25 mg tablet 25 mg PO DAILY 02/12/21 01/22/23 cholecalciferol (vitamin D3) 25 25 mcg PO DAILY 01/22/23 01/22/23 mcg (1,000 unit) capsule (Vitamin D3) felodipine 2.5 mg tablet,extended 2.5 mg PO DAILY 01/22/23 01/22/23 release 24 hr naproxen sodium 220 mg tablet 220 mg PO Q8H PRN Pain (Scale 01/22/23 01/22/23 (Aleve) Score 1-3) ondansetron HCl 4 mg tablet 4 mg PO Q4-6H PRN Nausea And 01/22/23 01/22/23 Vomiting Allergies Allergy/AdvReac Type Severity Reaction Status Date / Time [id number]-UWS-[id number] Reductase AdvReac Other Verified 01/22/23 11:39 Inhibitor [Dpzaktl-Qbk-Hje Reductase Inhibitor] Sulfa (Sulfonamide AdvReac Nausea and Verified 01/22/23 12:38 Antibiotics) Vomiting Review of Systems Review of Systems: All systems reviewed & are unremarkable except as noted in HPI and below PMFSH Past Medical History Medical History (Updated 01/27/23 @ 18:20 by Suleiman Banuelos MD) Cancer of left breast Diverticulosis Hypertension Osteoarthritis Right inguinal hernia Surgical History Surgical History (Updated 01/22/23 @ 22:18 by Patsy Anderson PA-C) History of cataract extraction History of left mastectomy History of partial thyroidectomy Family History Family History Son Autoimmune disease Sarcoidosis Father Acute myocardial infarction, Onset Age: 51 Mother , Onset Age: 47 bowel perforation Son Heart valve replaced Son , Onset Age: 52 autoimmune hemolytic anemia Social History Social History (Updated 01/22/23 @ 22:20 by Patsy Anderson PA-C) Social History: Surrogate medical decision maker: Lei Clifford (children). Code status: Full code. Smoking status: Never smoker Alcohol intake: never Substance use: never Lack of Transportation: No Lack of Food: Never True Current Housing: I Have Housing Concerned About Future Housing: No Difficulty Paying Gas/Electric Bills: No Difficulty Paying for Meds: No Currently Unemployed: No Education: High School Diploma/GED Difficulty w/ Childcare or Family Care: No Living arrangements: with family Additional living arrangements comments: Lives with daughter in [place]. Spiritual care concerns: No Exam Narrative: APPEARANCE: Well appearing, no pain, no distress, well-nourished. HEAD: normocephalic, atraumatic. EYES: PERRLA/EOMI, conjunctivae clear. NOSE: Normal no drainage NECK: Supple. No adenopathy, no masses. RESPIRATORY: Airway patent, respirations nonlabored. Clear to auscultation bilaterally, no rales, rhonchi, wheezing. CARDIOVASCULAR: Regular rate and rhythm without murmurs rubs or gallops. ABDOMINAL: Soft, nontender, nondistended, normal bowel sounds MUSCULOSK
[2023-01-27] MEDS: SODIUM CHLORIDE 0.9% IV 1,000 ML 500 ML IV CONT (08:31)
[2023-01-27] MEDS: ACETAMINOPHEN 325 MG TABLET 650 MG PO (08:31)
[2023-01-27] MEDS: ONDANSETRON INJ 4 MG/2 ML VIAL IV PUSH (08:32)
[2023-01-27 09:01] VITALS: BP 146/60; PULSE 87; RESP 18; O2SAT 95
[2023-01-27 09:02] LABS: Alanine Aminotransferase 21 U/L (6-35); Albumin Level 3.4 g/dL (3.5-5.1); Alkaline Phosphatase 126 U/L (38-126); Anion Gap 6 mmol/L (8-16); Aspartate Amino Transferase 23 U/L (14-36); Bilirubin,Total 0.7 mg/dL (0.2-1.3); Blood Urea Nitrogen 11 mg/dL (7-17); Calcium 8.7 mg/dL (8.4-10.2); Carbon Dioxide 24 mmol/L (22-30); Chloride 98 mmol/L (98-107); Estimated CRCL calculation 19 ml/min; Estimated Glomerular Filt Rate 39; Glucose 95 mg/dL (65-110); Potassium 4.2 mmol/L (3.4-5.0); Sodium 128 mmol/L (137-145)
[2023-01-27 09:09] LABS: Basophils Absolute Auto 0.1 K/mm3 (0.0-0.1); Basophils Percent Auto 0.8 % (0.2-1.2); Eosinophils Percent Auto 0.2 % (0-4.4); Hematocrit 32.1 % (37.0-47.0); Hemoglobin 10.5 g/dL (12.0-15.0); Immature Granulocyte Absolute 0.77 K/mm3 (0.00-0.031); Immature Granulocyte Percent A 5.6 % (0-0.5); Lymphocytes Absolute Auto 0.31 K/mm3 (0.9-3.2); Lymphocytes Percent Auto 2.3 % (18.3-44.2); Mean Corpuscular HGB Conc 32.7 g/dl (32-36); Mean Corpuscular Hemoglobin 30.9 pg (26-34); Mean Corpuscular Volume 94.4 fl (80-100); Mean Platelet Volume 9.3 fl (7.4-10.4); Monocytes Absolute Auto 0.3 K/mm3 (0.1-0.6); Monocytes Percent Auto 1.9 % (2.6-8.5); Neutrophils Absolute Auto 12.3 K/mm3 (1.3-6.7); Neutrophils Percent Auto 89.2 % (45.5-73.1); Platelet Count Result 200 k/mm3 (150-375); Red Cell Distribution Width 14.4 % (11.5-14.5); White Blood Count 13.7 K/mm3 (4.5-10.0)
[2023-01-27 09:13] LABS: Lactic Acid Reflex 1.1 mmol/L (0.7-2.0)
[2023-01-27 09:21] LABS: Influenza A QL RT-PCR Negative (Negative); Influenza B QL RT-PCR Negative (Negative); RSV RNA, RT-PCR Negative (Negative); SARS-CoV-2 RNA PCR Negative (Negative)
[2023-01-27 09:52] LABS: Appearance Urine Clear (Clear); Bacteria Urine None Seen /hpf; Bilirubin Urine Negative (Negative); Blood Urine Negative (Negative); Color Urine Yellow (Yellow); Glucose Urine UA Negative (Negative); Ketones Urine Negative (Negative); Leukocyte Esterase Ur 1+ LEU/UL (Negative); Nitrate Urine Negative (Negative); Non Pathogenic Casts 0-2; Protein Urine Trace mg/dL (Negative); RBC Urine 0-2 /hpf (0-2); Squamous Epithelial Cell Urine None seen /hpf (Few); Urobilinogen Urine 0.2 mg/dL (<2.0); pH Urine 6.5 (5.0-9.0)
[2023-01-27 09:59] LABS: Add Urine Microscopic? YES
[2023-01-27 10:06] VITALS: TEMP 37.2
[2023-01-27 11:15] VITALS: BP 126/61; PULSE 81; RESP 22; O2SAT 98
== END 2023-01-27 11:17 | disposition home or self-care (01) ==
PROVIDERS: Emergency Provider Emergency Medicine; PCP Internal Medicine Geriatric Medicine
DX: R53.83 Other fatigue (principal); E87.1 Hypo-osmolality and hyponatremia; R63.8 Other symptoms and signs concerning food and fluid intake; M25.551 Pain in right hip; I10 Essential (primary) hypertension; Z85.3 Personal history of malignant neoplasm of breast; Z20.822 Contact with and (suspected) exposure to COVID-19
CPT/HCPCS: 36415; 70450; 71045; 72125; 73502; 80053; 81001; 83605; 85025; 87086; 87637; 96361; 96374; 99284; A9270; J2405; J7030